=== PATIENT | male | born 1995 | race American Indian/Alaskan Native ===

== ENCOUNTER 2018-02-13 08:24 | Emergency (ER) | payer OTHER ==
[2018-02-13 08:37] VITALS: BP 126/74; PULSE 90; RESP 16; TEMP 98.2
--- NOTE | 2018-02-13 08:50 | ED ---
General Adult HPI - General Chief complaint: Extremity Injury, Lower Stated complaint: ankle injury-[facility] Time Seen by Provider: 02/13/18 08:42 Source: patient, RN notes reviewed Mode of arrival: ambulatory Limitations: no limitations - History of Present Illness Initial comments: Patient is a 22-year-old male presented to the emergency room today with a chief complaint of injury to the left ankle. Patient does admit that he was playing ultimate [employer] approximate hour ago when he rolled his ankle twice. Patient states second time seemed to be worse. He states he was able to continue to play. He states after he took off his cleats noticed increased pain. Patient states it was recommended that he come to the emergency room for an x-ray. Patient mitts payment dorsiflexion. Denies any bites symptoms. - Related Data Previous Rx's Medication Instructions Recorded Ibuprofen [Motrin] 600 mg PO Q6HR PRN #30 day 02/13/18 Allergies Allergy/AdvReac Type Severity Reaction Status Date / Time No Known Allergies Allergy Verified 02/13/18 08:46 Review of Systems ROS Statement: Those systems with pertinent positive or pertinent negative responses have been documented in the HPI. ROS Other: All systems not noted in ROS Statement are negative. Past Medical History Past Medical History: No Reported History History of Any Multi-Drug Resistant Organisms: None Reported Additional Past Surgical History / Comment(s): oral surgery Past Psychological History: No Psychological Hx Reported Smoking Status: Never smoker Past Alcohol Use History: Occasional Past Drug Use History: None Reported General Exam - General Exam Comments Initial Comments: General: The patient is awake and alert, in no distress, and does not appear acutely ill. Neck: The neck is supple, there is no tenderness or JVD. Musculoskeletal: Normal appearance of left ankle no obvious swelling, or deformity. Patient's pedal pulses 2+. Full range of motion both plantar dorsiflexion. No tenderness to the left knee or down to the left foot. No tenderness over the medial or lateral malleolus. Patient tender in the ATFL. Sensations intact. Neurological: A&O x 3. CN II-XII intact, There are no obvious motor or sensory deficits. Coordination appears grossly intact. Speech is normal. Skin: Skin is warm and dry and no rashes or lesions are noted. Psychiatric: Normal mood and affect. Limitations: no limitations Course Vital Signs 02/13/18 08:34 Temperature 98.2 F Pulse Rate 90 Respiratory 16 Rate Blood Pressure 126/74 O2 Sat by Pulse 97 Oximetry Medical Decision Making - Medical Decision Making X-rays reviewed negative for any acute fracture dislocation. Results were discussed with patient. Patient advised follow-up in 7-10 days if symptoms persist for repeat x-rays. Disposition Clinical Impression: Ankle sprain Disposition: HOME SELF-CARE Instructions: Ankle Sprain (ED) Additional Instructions: Please continue to ice elevate the affected area at least 4 times a day for 20 minutes at a time. Please use Tylenol/ibuprofen for pain. Please follow-up in 7-10 days for repeat x-rays if symptoms persist. Please return to emergency room for any other concerns. Prescriptions: Ibuprofen [Motrin] 600 mg PO Q6HR PRN #30 day PRN Reason: Pain Is patient prescribed a controlled substance at d/c from ED?: No Referrals: Igor Nolen DO [Primary Care Provider] - 1-2 days Time of Disposition: 09:05
--- NOTE | 2018-02-13 09:03 | XR ---
EXAMINATION TYPE: XR ankle complete LT DATE OF EXAM: 02/13/2018 COMPARISON: NONE HISTORY: Pain and swelling FINDINGS: Three views of the ankle demonstrate the ankle mortise to be intact and symmetric. The joint spaces are preserved. The osseous structures are intact. IMPRESSION: 1. No definite acute fracture or dislocation, if symptoms persist follow-up study in 7 to 10 days wou ld be suggested.
== END 2018-02-13 09:23 | disposition home or self-care (01) ==
LOC: EC 08:24
DX: S93.402A Sprain of unspecified ligament of left ankle, initial encounter (principal); X50.1XXA Overexertion from prolonged static or awkward postures, initial encounter; Y93.74 Activity, frisbee; Y99.0 Civilian activity done for income or pay
CPT/HCPCS: 99283